=== PATIENT | male | born 1955 | race Caucasian/White ===

== ENCOUNTER 2023-01-04 10:06 | Day surgery (SDC) | payer BC ==
[2022-12-29 11:00] VITALS: BMI 31.0
[2023-01-04] MEDS ORDERED: Hydrocortisone Sod Succ/PF 100 mg/2 ml Vial ONE (11:00)
[2023-01-04] MEDS ORDERED: Bupivacaine PF 0.5% 30 ML VIAL ONE (12:31)
[2023-01-04] MEDS ORDERED: EPINEPHrine 1 MG/ML VIAL ONE (12:34)
[2023-01-04] MEDS ORDERED: fentaNYL 50 mcg/mL 1 mL Vial ONE (12:38)
[2023-01-04] MEDS ORDERED: Midazolam HCl 2 mg/2 ml Vial ONE ×2 (12:38→12:55)
[2023-01-04] MEDS ORDERED: PROPOFOL 0 ML ONE (12:42)
[2023-01-04] MEDS ORDERED: Ondansetron PF 4 MG/2 ML Vial ONE (12:42)
[2023-01-04] MEDS ORDERED: CEFAZOLIN 2 GM VIAL ONE (12:43)
== END 2023-01-04 15:10 | disposition home or self-care (01) ==
LOC: CSHSDC 10:06
PROVIDERS: ATTEND Surgery
PROC: 0JBF0ZZ Excision of Left Upper Arm Subcutaneous Tissue and Fascia, Open Approach (ICD-10-PCS; principal; 2023-01-04)
DX: R22.32 Localized swelling, mass and lump, left upper limb (principal); D21.9 Benign neoplasm of connective and other soft tissue, unspecified; D48.19 Other specified neoplasm of uncertain behavior of connective and other soft tissue; E11.9 Type 2 diabetes mellitus without complications; E78.00 Pure hypercholesterolemia, unspecified; I25.2 Old myocardial infarction; E03.9 Hypothyroidism, unspecified; I10 Essential (primary) hypertension; E66.9 Obesity, unspecified; Z79.890 Hormone replacement therapy; Z88.2 Allergy status to sulfonamides; Z79.899 Other long term (current) drug therapy
CPT/HCPCS: 88305; 88341; 88342; 88360; J0171; J1720; J2250; J2405; J2704; J3010; S0020